=== PATIENT | female | born 1990 | race Caucasian/White ===

== ENCOUNTER 2018-01-14 19:18 | Emergency (ER) | payer MEDICAID ==
[~2018-01-14] VITALS: Ht 162.6 cm; Wt 118.2 kg
[2018-01-14 20:21] LABS: BASOPHILS # (AUTO) 0.07 x10^3/uL (0-0.1); BASOPHILS % (AUTO) 1 % (0-1); EOSINOPHILS # (AUTO) 0.08 x10^3/uL (0-0.4); EOSINOPHILS % (AUTO) 1 % (1-7); LYMPHOCYTES # (AUTO) 2.79 x10^3/uL (1-3.4); LYMPHOCYTES % (AUTO) 25 % (22-44); MD NO; MEAN CORPUSCULAR HEMOGLOBIN 27.9 pg (27.0-34.8); MEAN CORPUSCULAR HGB CONC 33.4 g/dL (32.4-35.8); MEAN CORPUSCULAR VOLUME 83.3 fL (80-100); MEAN PLATELET VOLUME 8.8 fL (7.4-10.4); MONOCYTES # (AUTO) 0.62 x10^3/uL (0.2-0.8); MONOCYTES % (AUTO) 6 % (2-9); NEUTROPHILS # (AUTO) 7.46 x10^3/uL (1.8-6.8); NEUTROPHILS % (AUTO) 68 % (42-75); PLATELET COUNT 289 x10^3/uL (130-400); RED BLOOD COUNT 4.71 x10^6/uL (3.82-5.3); RED CELL DISTRIBUTION WIDTH 13.5 % (9.6-15.2)
[2018-01-14 20:30] LABS: MICROSCOPIC INDICATED
[2018-01-14 20:32] LABS: ALANINE AMINOTRANSFERASE 25 U/L (12-78); ALBUMIN 3.2 g/dL (3.4-5.0); ANION GAP 8 mmol/L (5-15); CALCIUM 8.4 mg/dL (8.5-10.1); CHLORIDE 109 mmol/L (98-107); CREATININE 0.69 mg/dL (0.55-1.02)
[2018-01-14 20:33] LABS: CULTURE INDICATED? YES
[2018-01-14 20:36] LABS: ALKALINE PHOSPHATASE 75 U/L (45-117); BILIRUBIN,TOTAL 0.4 mg/dL (0.2-1.0); TOTAL PROTEIN 6.6 g/dL (6.4-8.2)
[2018-01-14 21:04] VITALS: BP 114/69
[2018-01-14] MEDS ORDERED: ONDANSETRON ODT 4 MG ONE (21:16)
[2018-01-14] MEDS ORDERED: ONDANSETRON ODT 8 MG PO ONE (21:30)
== END 2018-01-14 21:37 | disposition home or self-care (01) ==
LOC: ED 21:26
DX: R10.9 Unspecified abdominal pain (principal); J45.909 Unspecified asthma, uncomplicated; E66.9 Obesity, unspecified
CPT/HCPCS: 36415; 80053; 81001; 83690; 84703; 85025; 87086; 99284; Q0162

== ENCOUNTER 2018-02-02 07:57 | Emergency (ER) | payer MEDICAID ==
[~2018-02-02] VITALS: Ht 162.6 cm; Wt 130.5 kg
[2018-02-02 09:47] LABS: CULTURE INDICATED? YES; MICROSCOPIC INDICATED
[2018-02-02 09:48] LABS: HCG UR SG 1.028 (1.003-1.030)
[2018-02-02 10:06] LABS: BASOPHILS # (AUTO) 0.06 x10^3/uL (0-0.1); BASOPHILS % (AUTO) 1 % (0-1); EOSINOPHILS # (AUTO) 0.09 x10^3/uL (0-0.4); EOSINOPHILS % (AUTO) 1 % (1-7); LYMPHOCYTES % (AUTO) 27 % (22-44); MD NO; MEAN CORPUSCULAR HEMOGLOBIN 27.2 pg (27.0-34.8); MEAN CORPUSCULAR HGB CONC 32.7 g/dL (32.4-35.8); MEAN CORPUSCULAR VOLUME 83.2 fL (80-100); MEAN PLATELET VOLUME 9.1 fL (7.4-10.4); MONOCYTES # (AUTO) 0.45 x10^3/uL (0.2-0.8); MONOCYTES % (AUTO) 5 % (2-9); NEUTROPHILS # (AUTO) 5.49 x10^3/uL (1.8-6.8); NEUTROPHILS % (AUTO) 66 % (42-75); PLATELET COUNT 309 x10^3/uL (130-400); RED BLOOD COUNT 5.02 x10^6/uL (3.82-5.3)
[2018-02-02 10:22] LABS: ANION GAP 6 mmol/L (5-15); CALCIUM 8.6 mg/dL (8.5-10.1); CHLORIDE 109 mmol/L (98-107); CREATININE 0.58 mg/dL (0.55-1.02)
[2018-02-02] MEDS ORDERED: KETOROLAC 30 MG/1 ML IM ONE (10:30)
[2018-02-02] MEDS ORDERED: KETOROLAC 30 MG/1 ML ONE (10:35)
[2018-02-02 11:02] VITALS: BP 113/72
== END 2018-02-02 12:14 | disposition home or self-care (01) ==
LOC: ED 12:08
DX: N20.0 Calculus of kidney (principal); M79.3 Panniculitis, unspecified; B37.9 Candidiasis, unspecified; J45.909 Unspecified asthma, uncomplicated; F31.9 Bipolar disorder, unspecified; Z87.442 Personal history of urinary calculi
CPT/HCPCS: 36415; 74176; 80048; 81001; 81025; 85025; 87086; 96372; 99285; J1885

== ENCOUNTER 2018-04-21 10:43 | Emergency (ER) | payer MEDICAID ==
[~2018-04-21] VITALS: Ht 162.6 cm; Wt 132.6 kg
[2018-04-21 11:03] VITALS: BP 116/62
[2018-04-21] MEDS ORDERED: ONDANSETRON ODT 4 MG ONE (11:13)
[2018-04-21 11:25] LABS: BASOPHILS # (AUTO) 0.09 x10^3/uL (0-0.1); BASOPHILS % (AUTO) 1 % (0-1); EOSINOPHILS # (AUTO) 0.07 x10^3/uL (0-0.4); EOSINOPHILS % (AUTO) 1 % (1-7); LYMPHOCYTES # (AUTO) 2.46 x10^3/uL (1-3.4); LYMPHOCYTES % (AUTO) 31 % (22-44); MD NO; MEAN CORPUSCULAR HGB CONC 32.5 g/dL (32.4-35.8); MEAN CORPUSCULAR VOLUME 83.1 fL (80-100); MEAN PLATELET VOLUME 8.9 fL (7.4-10.4); MONOCYTES % (AUTO) 6 % (2-9); NEUTROPHILS # (AUTO) 4.84 x10^3/uL (1.8-6.8); NEUTROPHILS % (AUTO) 61 % (42-75); PLATELET COUNT 298 x10^3/uL (130-400); RED BLOOD COUNT 4.48 x10^6/uL (3.82-5.3); RED CELL DISTRIBUTION WIDTH 14.5 % (9.6-15.2)
[2018-04-21] MEDS ORDERED: ONDANSETRON ODT 4 MG PO ONE (11:30)
[2018-04-21 11:37] LABS: ALANINE AMINOTRANSFERASE 23 U/L (12-78); ALBUMIN 3.1 g/dL (3.4-5.0); ANION GAP 6 mmol/L (5-15); CALCIUM 8.2 mg/dL (8.5-10.1); CHLORIDE 109 mmol/L (98-107); CREATININE 0.58 mg/dL (0.55-1.02)
[2018-04-21 11:40] LABS: ALKALINE PHOSPHATASE 80 U/L (45-117); BILIRUBIN,TOTAL 0.2 mg/dL (0.2-1.0); TOTAL PROTEIN 6.7 g/dL (6.4-8.2)
== END 2018-04-21 12:17 | disposition home or self-care (01) ==
LOC: ED 11:20
DX: K52.9 Noninfective gastroenteritis and colitis, unspecified (principal); R11.2 Nausea with vomiting, unspecified; J45.909 Unspecified asthma, uncomplicated
CPT/HCPCS: 36415; 71046; 80053; 85025; 93005; 99285; Q0162

== ENCOUNTER 2018-05-22 08:56 | Emergency (ER) | payer MEDICAID ==
[~2018-05-22] VITALS: Ht 162.6 cm; Wt 129.5 kg
[2018-05-22 09:35] LABS: BASOPHILS # (AUTO) 0.05 x10^3/uL (0-0.1); BASOPHILS % (AUTO) 1 % (0-1); EOSINOPHILS % (AUTO) 1 % (1-7); LYMPHOCYTES # (AUTO) 1.95 x10^3/uL (1-3.4); LYMPHOCYTES % (AUTO) 23 % (22-44); MD NO; MEAN CORPUSCULAR HEMOGLOBIN 26.7 pg (27.0-34.8); MEAN CORPUSCULAR HGB CONC 32.6 g/dL (32.4-35.8); MEAN PLATELET VOLUME 9.4 fL (7.4-10.4); MONOCYTES # (AUTO) 0.56 x10^3/uL (0.2-0.8); MONOCYTES % (AUTO) 7 % (2-9); NEUTROPHILS # (AUTO) 5.74 x10^3/uL (1.8-6.8); NEUTROPHILS % (AUTO) 68 % (42-75); PLATELET COUNT 304 x10^3/uL (130-400); RED BLOOD COUNT 5.01 x10^6/uL (3.82-5.3); RED CELL DISTRIBUTION WIDTH 14.3 % (9.6-15.2)
[2018-05-22 09:36] LABS: CULTURE INDICATED? YES; MICROSCOPIC INDICATED
[2018-05-22 09:45] LABS: ALBUMIN 3.3 g/dL (3.4-5.0); ANION GAP 5 mmol/L (5-15); CALCIUM 8.3 mg/dL (8.5-10.1); CHLORIDE 110 mmol/L (98-107)
[2018-05-22 09:51] LABS: ALANINE AMINOTRANSFERASE 39 U/L (12-78); ALKALINE PHOSPHATASE 73 U/L (45-117); BILIRUBIN,TOTAL 0.6 mg/dL (0.2-1.0); CREATININE 0.71 mg/dL (0.55-1.02); TOTAL PROTEIN 6.7 g/dL (6.4-8.2)
[2018-05-22] MEDS ORDERED: AZITHROMYCIN 250 MG TABLET PO STA (10:28)
[2018-05-22] MEDS ORDERED: CEFTRIAXONE 250 MG IM ONE (10:30)
[2018-05-22] MEDS ORDERED: AZITHROMYCIN 500 MG TABLET ONE (10:36)
[2018-05-22] MEDS ORDERED: CEFTRIAXONE 250 MG ONE (10:36)
[2018-05-22 10:46] LABS: CLUE CELLS NONE SEEN (NONE SEEN); WET PREP WBCS FEW (FEW)
[2018-05-22 11:06] VITALS: BP 128/75
[2018-05-24] MEDS ORDERED: TRAZ50TA66 PO (09:51)
== END 2018-05-22 11:09 | disposition home or self-care (01) ==
LOC: ED 10:37
DX: N76.0 Acute vaginitis (principal); N89.8 Other specified noninflammatory disorders of vagina; R10.9 Unspecified abdominal pain; J45.909 Unspecified asthma, uncomplicated; E66.9 Obesity, unspecified; Z88.0 Allergy status to penicillin
CPT/HCPCS: 36415; 76700; 80053; 81001; 83690; 84703; 85025; 87086; 87147; 87210; 87491; 87591; 87808; 96372; 99284; J0696

== ENCOUNTER 2018-05-24 09:28 | Emergency (ER) | payer MEDICAID ==
[~2018-05-24] VITALS: Ht 162.6 cm; Wt 109.0 kg
[2018-05-24] MEDS ORDERED: TRAZ-136 PO (09:51)
[2018-05-24] MEDS ORDERED: SODIUM CHLORIDE 0.9% 1,000ML IVBOLUS ONE (10:00)
[2018-05-24] MEDS ORDERED: ONDANSETRON 2MG/ML, 2ML IVPush ONE (10:00)
[2018-05-24] MEDS ORDERED: ACETAMINOPHEN 325 MG TABLET PO ONE (10:30)
[2018-05-24 10:43] LABS: ALBUMIN 3.6 g/dL (3.4-5.0); ANION GAP 7 mmol/L (5-15); CHLORIDE 108 mmol/L (98-107)
[2018-05-24 10:48] LABS: RAPID INFLUENZA A Negative (Negative); RAPID INFLUENZA B Negative (Negative)
[2018-05-24 10:51] LABS: BASOPHILS # (AUTO) 0.02 x10^3/uL (0-0.1); BASOPHILS % (AUTO) 0 % (0-1); CREATININE 0.79 mg/dL (0.55-1.02); EOSINOPHILS # (AUTO) 0.01 x10^3/uL (0-0.4); EOSINOPHILS % (AUTO) 0 % (1-7); HEMOGRAM NOTE RECHECKED; LYMPHOCYTES # (AUTO) 0.97 x10^3/uL (1-3.4); LYMPHOCYTES % (AUTO) 16 % (22-44); MD NO; MEAN CORPUSCULAR HEMOGLOBIN 26.6 pg (27.0-34.8); MEAN CORPUSCULAR HGB CONC 32.5 g/dL (32.4-35.8); MEAN CORPUSCULAR VOLUME 81.6 fL (80-100); MEAN PLATELET VOLUME 9.4 fL (7.4-10.4); MONOCYTES # (AUTO) 0.75 x10^3/uL (0.2-0.8); MONOCYTES % (AUTO) 12 % (2-9); NEUTROPHILS # (AUTO) 4.53 x10^3/uL (1.8-6.8); NEUTROPHILS % (AUTO) 72 % (42-75); PLATELET COUNT 224 x10^3/uL (130-400); RED BLOOD COUNT 5.27 x10^6/uL (3.82-5.3); RED CELL DISTRIBUTION WIDTH 13.8 % (9.6-15.2)
[2018-05-24] MEDS ORDERED: ACETAMINOPHEN 325 MG TABLET ONE (10:55)
[2018-05-24] MEDS ORDERED: ONDANSETRON 2MG/ML, 2ML ONE (10:55)
[2018-05-24 10:56] LABS: CULTURE INDICATED? YES; MICROSCOPIC INDICATED
[2018-05-24 11:38] VITALS: BP 103/63
== END 2018-05-24 11:38 | disposition home or self-care (01) ==
LOC: ED 11:30
DX: J00 Acute nasopharyngitis [common cold] (principal); R11.10 Vomiting, unspecified; N30.00 Acute cystitis without hematuria; J45.909 Unspecified asthma, uncomplicated; F31.9 Bipolar disorder, unspecified; E66.01 Morbid (severe) obesity due to excess calories; Z68.25 Body mass index [BMI] 25.0-25.9, adult
CPT/HCPCS: 36415; 71046; 80048; 81001; 82040; 84703; 85025; 87086; 87400; 96361; 96374; 99284; J2405; J7030

== ENCOUNTER 2018-06-06 23:30 | Emergency (ER) | payer MEDICAID ==
[~2018-06-06] VITALS: Ht 162.6 cm; Wt 131.0 kg
[~2018-06-06 23:30] MED LIST: TRAZ50TA66 PO
[2018-06-07 00:12] LABS: BASOPHILS # (AUTO) 0.04 x10^3/uL (0-0.1); BASOPHILS % (AUTO) 1 % (0-1); EOSINOPHILS # (AUTO) 0.07 x10^3/uL (0-0.4); EOSINOPHILS % (AUTO) 1 % (1-7); LYMPHOCYTES # (AUTO) 3.56 x10^3/uL (1-3.4); LYMPHOCYTES % (AUTO) 42 % (22-44); MD NO; MEAN CORPUSCULAR HEMOGLOBIN 26.8 pg (27.0-34.8); MEAN CORPUSCULAR HGB CONC 32.8 g/dL (32.4-35.8); MEAN CORPUSCULAR VOLUME 81.7 fL (80-100); MEAN PLATELET VOLUME 9.2 fL (7.4-10.4); MONOCYTES % (AUTO) 7 % (2-9); NEUTROPHILS # (AUTO) 4.12 x10^3/uL (1.8-6.8); NEUTROPHILS % (AUTO) 49 % (42-75); PLATELET COUNT 332 x10^3/uL (130-400); RED BLOOD COUNT 4.95 x10^6/uL (3.82-5.3); RED CELL DISTRIBUTION WIDTH 14.1 % (9.6-15.2)
[2018-06-07 00:25] LABS: ALANINE AMINOTRANSFERASE 25 U/L (12-78); ALBUMIN 3.2 g/dL (3.4-5.0); ANION GAP 10 mmol/L (5-15); CALCIUM 8.4 mg/dL (8.5-10.1); CHLORIDE 111 mmol/L (98-107); CREATININE 0.67 mg/dL (0.55-1.02)
[2018-06-07 00:30] LABS: ALKALINE PHOSPHATASE 75 U/L (45-117); BILIRUBIN,TOTAL 0.2 mg/dL (0.2-1.0); TOTAL PROTEIN 6.6 g/dL (6.4-8.2); TROPONIN I < 0.015 ng/mL (0.000-0.045)
[2018-06-07 00:33] LABS: HCG UR SG 1.031 (1.003-1.030)
[2018-06-07 00:34] LABS: MICROSCOPIC INDICATED
[2018-06-07 00:52] LABS: CULTURE INDICATED? NO
[2018-06-07 01:27] VITALS: BP 109/48
== END 2018-06-07 01:29 | disposition home or self-care (01) ==
LOC: ED 23:59
DX: R10.11 Right upper quadrant pain (principal); R11.2 Nausea with vomiting, unspecified; R19.7 Diarrhea, unspecified; R07.9 Chest pain, unspecified; R10.13 Epigastric pain; R10.12 Left upper quadrant pain
CPT/HCPCS: 36415; 71045; 76700; 80053; 81001; 81025; 83690; 84484; 85025; 93005; 99284

== ENCOUNTER 2018-07-03 10:29 | Emergency (ER) | payer MEDICAID ==
[~2018-07-03] VITALS: Ht 162.6 cm; Wt 130.0 kg
[2018-07-03 10:36] VITALS: BP 135/77
== END 2018-07-03 11:21 | disposition home or self-care (01) ==
LOC: ED 11:10
DX: F31.9 Bipolar disorder, unspecified (principal); Z76.0 Encounter for issue of repeat prescription; J45.909 Unspecified asthma, uncomplicated; Z88.0 Allergy status to penicillin
CPT/HCPCS: 99283

== ENCOUNTER 2018-07-30 10:01 | Emergency (ER) | payer MEDICAID ==
[~2018-07-30] VITALS: Ht 162.6 cm; Wt 132.3 kg
[2018-07-30 11:38] LABS: HCG UR SG 1.018 (1.003-1.030)
[2018-07-30 11:40] LABS: CULTURE INDICATED? YES; MICROSCOPIC INDICATED
[2018-07-30 12:21] VITALS: BP 121/80
== END 2018-07-30 12:27 | disposition home or self-care (01) ==
LOC: ED 10:14
DX: R30.0 Dysuria (principal); Z87.442 Personal history of urinary calculi; Z87.440 Personal history of urinary (tract) infections
CPT/HCPCS: 81001; 81025; 87086; 99283

== ENCOUNTER 2018-08-20 12:54 | Emergency (ER) | payer MEDICAID ==
[~2018-08-20] VITALS: Ht 162.6 cm; Wt 131.2 kg
[2018-08-20 13:00] VITALS: BP 112/74
[2018-08-20] MEDS ORDERED: ONDANSETRON ODT 4 MG ONE (13:30)
[2018-08-20] MEDS ORDERED: ONDANSETRON ODT 4 MG PO ONE (13:30)
[2018-08-20] MEDS ORDERED: ACETAMINOPHEN 500 MG TABLET PO ONE (13:30)
[2018-08-20] MEDS ORDERED: ACETAMINOPHEN 500 MG TABLET ONE (13:30)
--- NOTE | 2018-08-20 13:34 | NUR ---
PT HERE FOR UTI SYMPTOMS. PT REPORTS FREQUENT URINATION WITH BURING SENSATION. PT PROVIDED UA SAMPLE AND MEDICATED FOR DISCOMFORT. AWAITING FURHTER ORDERS.
[2018-08-20 13:51] LABS: BASOPHILS # (AUTO) 0.06 x10^3/uL (0-0.1); BASOPHILS % (AUTO) 1 % (0-1); EOSINOPHILS # (AUTO) 0.11 x10^3/uL (0-0.4); EOSINOPHILS % (AUTO) 1 % (1-7); LYMPHOCYTES # (AUTO) 2.61 x10^3/uL (1-3.4); LYMPHOCYTES % (AUTO) 29 % (22-44); MD NO; MEAN CORPUSCULAR HGB CONC 32.1 g/dL (32.4-35.8); MEAN PLATELET VOLUME 9.6 fL (7.4-10.4); MONOCYTES # (AUTO) 0.58 x10^3/uL (0.2-0.8); MONOCYTES % (AUTO) 6 % (2-9); NEUTROPHILS # (AUTO) 5.71 x10^3/uL (1.8-6.8); NEUTROPHILS % (AUTO) 63 % (42-75); PLATELET COUNT 308 x10^3/uL (130-400); RED BLOOD COUNT 5.17 x10^6/uL (3.82-5.3); RED CELL DISTRIBUTION WIDTH 15.2 % (9.6-15.2)
[2018-08-20 13:53] LABS: HCG UR SG 1.031 (1.003-1.030)
[2018-08-20 13:54] LABS: MICROSCOPIC INDICATED
[2018-08-20 13:57] LABS: ALANINE AMINOTRANSFERASE 21 U/L (12-78); ALBUMIN 3.2 g/dL (3.4-5.0); ANION GAP 6 mmol/L (5-15); CALCIUM 8.2 mg/dL (8.5-10.1); CHLORIDE 108 mmol/L (98-107); CREATININE 0.65 mg/dL (0.55-1.02)
[2018-08-20 14:00] LABS: ALKALINE PHOSPHATASE 92 U/L (45-117); BILIRUBIN,TOTAL 0.3 mg/dL (0.2-1.0); TOTAL PROTEIN 6.6 g/dL (6.4-8.2)
[2018-08-20 14:09] LABS: RAPID INFLUENZA A Negative (Negative); RAPID INFLUENZA B Negative (Negative)
[2018-08-20 14:20] LABS: CULTURE INDICATED? YES
--- NOTE | 2018-08-20 14:51 | NUR ---
Patient given discharge instructions and Rx, they have confirmed that they understand the instructions. Patient ambulatory with steady gait.
== END 2018-08-20 14:57 | disposition home or self-care (01) ==
LOC: ED 13:55
DX: N30.00 Acute cystitis without hematuria (principal); J06.9 Acute upper respiratory infection, unspecified; F31.9 Bipolar disorder, unspecified; J45.909 Unspecified asthma, uncomplicated; E66.9 Obesity, unspecified; Z68.42 Body mass index [BMI] 45.0-49.9, adult
CPT/HCPCS: 36415; 71045; 80053; 81001; 81025; 83690; 85025; 87086; 87400; 99284; Q0162

== ENCOUNTER 2018-09-02 15:38 | Emergency (ER) | payer MEDICAID ==
[~2018-09-02] VITALS: Ht 162.6 cm; Wt 135.1 kg
[2018-09-02 16:26] LABS: BASOPHILS # (AUTO) 0.02 x10^3/uL (0-0.1); BASOPHILS % (AUTO) 0 % (0-1); EOSINOPHILS # (AUTO) 0.09 x10^3/uL (0-0.4); EOSINOPHILS % (AUTO) 1 % (1-7); LYMPHOCYTES # (AUTO) 2.36 x10^3/uL (1-3.4); LYMPHOCYTES % (AUTO) 23 % (22-44); MD NO; MEAN CORPUSCULAR VOLUME 81.9 fL (80-100); MEAN PLATELET VOLUME 8.9 fL (7.4-10.4); MONOCYTES % (AUTO) 5 % (2-9); NEUTROPHILS # (AUTO) 7.49 x10^3/uL (1.8-6.8); NEUTROPHILS % (AUTO) 72 % (42-75); PLATELET COUNT 309 x10^3/uL (130-400); RED CELL DISTRIBUTION WIDTH 15.4 % (9.6-15.2)
[2018-09-02 16:33] LABS: CULTURE INDICATED? YES; MICROSCOPIC INDICATED
[2018-09-02 16:36] LABS: ALANINE AMINOTRANSFERASE 22 U/L (12-78); ALBUMIN 3.5 g/dL (3.4-5.0); ANION GAP 4 mmol/L (5-15); CALCIUM 8.5 mg/dL (8.5-10.1); CHLORIDE 111 mmol/L (98-107); CREATININE 0.73 mg/dL (0.55-1.02)
[2018-09-02 16:40] LABS: ALKALINE PHOSPHATASE 86 U/L (45-117); BILIRUBIN,TOTAL 0.3 mg/dL (0.2-1.0); TOTAL PROTEIN 6.9 g/dL (6.4-8.2)
--- NOTE | 2018-09-02 19:12 | NUR ---
REPORT OF PT FROM LISA OH AND ASSUMING CARE OF PT AT THIS TIME.
--- NOTE | 2018-09-02 19:21 | NUR ---
CARE ASSUMED FOR DC. PT DC'D HOME WITH RX X 1 AND UNDERSTANDING OF INSTRUCTIONS. PT AND FAMILY MEMBER ESCORTED TO DC DESK.
[2018-09-02 19:22] VITALS: BP 128/72
== END 2018-09-02 19:24 | disposition home or self-care (01) ==
LOC: ED 18:02
DX: N30.00 Acute cystitis without hematuria (principal)
CPT/HCPCS: 36415; 74176; 80053; 81001; 84703; 85025; 87086; 99284

== ENCOUNTER 2018-09-10 07:25 | Emergency (ER) | payer MEDICAID ==
[~2018-09-10] VITALS: Ht 162.6 cm; Wt 132.3 kg
[2018-09-10 07:28] VITALS: BP 121/77
[2018-09-10] MEDS ORDERED: QUET200T4 PO (07:42)
[2018-09-10] MEDS ORDERED: KETOROLAC 30 MG/1 ML IM ONE (08:00)
[2018-09-10] MEDS ORDERED: ONDANSETRON ODT 4 MG PO ONE (08:00)
[2018-09-10 08:06] LABS: BASOPHILS # (AUTO) 0.03 x10^3/uL (0-0.1); BASOPHILS % (AUTO) 0 % (0-1); EOSINOPHILS # (AUTO) 0.13 x10^3/uL (0-0.4); EOSINOPHILS % (AUTO) 2 % (1-7); LYMPHOCYTES # (AUTO) 1.99 x10^3/uL (1-3.4); LYMPHOCYTES % (AUTO) 27 % (22-44); MD NO; MEAN CORPUSCULAR HEMOGLOBIN 26.2 pg (27.0-34.8); MEAN CORPUSCULAR HGB CONC 32.4 g/dL (32.4-35.8); MEAN CORPUSCULAR VOLUME 80.9 fL (80-100); MEAN PLATELET VOLUME 8.9 fL (7.4-10.4); MONOCYTES # (AUTO) 0.69 x10^3/uL (0.2-0.8); MONOCYTES % (AUTO) 9 % (2-9); NEUTROPHILS # (AUTO) 4.59 x10^3/uL (1.8-6.8); NEUTROPHILS % (AUTO) 62 % (42-75); PLATELET COUNT 290 x10^3/uL (130-400); RED BLOOD COUNT 5.22 x10^6/uL (3.82-5.3); RED CELL DISTRIBUTION WIDTH 15.1 % (9.6-15.2)
[2018-09-10] MEDS ORDERED: ONDANSETRON ODT 4 MG ONE (08:08)
[2018-09-10] MEDS ORDERED: KETOROLAC 30 MG/1 ML ONE (08:08)
[2018-09-10 08:16] LABS: ALBUMIN 3.3 g/dL (3.4-5.0); ANION GAP 5 mmol/L (5-15); CALCIUM 8.3 mg/dL (8.5-10.1); CHLORIDE 110 mmol/L (98-107); CREATININE 0.72 mg/dL (0.55-1.02)
[2018-09-10 08:24] LABS: CULTURE INDICATED? YES; MICROSCOPIC INDICATED
== END 2018-09-10 09:37 | disposition home or self-care (01) ==
LOC: ED 08:50
DX: J45.909 Unspecified asthma, uncomplicated (principal); R30.0 Dysuria; F31.9 Bipolar disorder, unspecified
CPT/HCPCS: 36415; 74176; 80048; 81001; 82040; 85025; 87086; 96372; 99284; J1885; Q0162

== ENCOUNTER 2018-09-16 18:29 | Emergency (ER) | payer MEDICAID ==
[~2018-09-16] VITALS: Ht 162.6 cm; Wt 133.4 kg
[~2018-09-16 18:29] MED LIST changes: +QUET200T4 PO
[2018-09-16 18:36] VITALS: BP 138/93
[2018-09-16] MEDS ORDERED: ONDANSETRON ODT 4 MG ONE (18:54)
[2018-09-16] MEDS ORDERED: ONDANSETRON ODT 4 MG PO ONE (19:00)
[2018-09-16 19:01] LABS: MEAN CORPUSCULAR HEMOGLOBIN 26.8 pg (27.0-34.8); MEAN CORPUSCULAR HGB CONC 33.2 g/dL (32.4-35.8); MEAN CORPUSCULAR VOLUME 80.8 fL (80-100); MEAN PLATELET VOLUME 8.9 fL (7.4-10.4); PLATELET COUNT 282 x10^3/uL (130-400); RED CELL DISTRIBUTION WIDTH 14.7 % (9.6-15.2)
[2018-09-16 19:11] LABS: ALANINE AMINOTRANSFERASE 26 U/L (12-78); ALBUMIN 3.6 g/dL (3.4-5.0); ANION GAP 5 mmol/L (5-15); CALCIUM 8.4 mg/dL (8.5-10.1); CHLORIDE 108 mmol/L (98-107); CREATININE 0.62 mg/dL (0.55-1.02)
[2018-09-16 19:15] LABS: ALKALINE PHOSPHATASE 84 U/L (45-117); BILIRUBIN,TOTAL 0.7 mg/dL (0.2-1.0); TOTAL PROTEIN 7.1 g/dL (6.4-8.2)
[2018-09-16 19:36] LABS: BASOPHILS # (AUTO) 0.01 x10^3/uL (0-0.1); BASOPHILS % (AUTO) 0 % (0-1); EOSINOPHILS # (AUTO) 0.08 x10^3/uL (0-0.4); EOSINOPHILS % (AUTO) 1 % (1-7); LYMPHOCYTES # (AUTO) 1.05 x10^3/uL (1-3.4); LYMPHOCYTES % (AUTO) 9 % (22-44); MD NO; MONOCYTES # (AUTO) 0.59 x10^3/uL (0.2-0.8); MONOCYTES % (AUTO) 5 % (2-9); NEUTROPHILS # (AUTO) 9.83 x10^3/uL (1.8-6.8); NEUTROPHILS % (AUTO) 85 % (42-75)
--- NOTE | 2018-09-16 21:25 | NUR ---
[id number]
--- NOTE | 2018-09-16 22:39 | NUR ---
NILX2
--- NOTE | 2018-09-16 22:47 | NUR ---
NILX3
== END 2018-09-16 22:58 | disposition left against medical advice (07) ==
LOC: ED 22:52
DX: R10.31 Right lower quadrant pain (principal)
CPT/HCPCS: 36415; 80053; 83690; 84703; 85025; 99283; Q0162

== ENCOUNTER 2019-01-28 12:01 | Emergency (ER) | payer MEDICAID ==
[~2019-01-28] VITALS: Ht 162.6 cm; Wt 133.4 kg
[2019-01-28 12:08] VITALS: BP 112/77
--- NOTE | 2019-01-28 12:26 | NUR ---
TASK RN, ASSISTING PRIMARY. URINE COLLECTED/ORDERED/SENT TO LAB. PT WITH DYSURIA FOR A COUPLE DAYS-"BURNING WITH URINATION", MILD FLANK PAIN AND NAUSEA. PT STATES RASH TO INNER THIGH FOR ONE WEEK. RASH IS MILD ERYTHEMA/SKIN IRRITATION TO BILATERAL INNER THIGH. CALL LIGHT WITHIN REACH, ERP IN TO SEE PT.
[2019-01-28] MEDS ORDERED: PHENAZOPYRIDINE 200 MG TABLET PO ONE (12:30)
[2019-01-28] MEDS ORDERED: PHENAZOPYRIDINE 200 MG TABLET ONE (12:34)
[2019-01-28 12:35] LABS: MICROSCOPIC AUTO
[2019-01-28 12:36] LABS: CULTURE INDICATED? YES
--- NOTE | 2019-01-28 12:37 | NUR ---
PYRIDIUM GIVEN PER ERP ORDER. WARM BLANKET PROVIDED.
--- NOTE | 2019-01-28 12:41 | NUR ---
UA RESULT BACK, PT FOR RECHECK.
--- NOTE | 2019-01-28 12:54 | NUR ---
PT AMBULATED TO BR WITH SBA. MONITOR REATTACHED. LIGHTS DIMMMED, PT ASSISTED FOR REPOSITIONING ON GURNEY, CALL LIGHT WITHIN REACH.
[2019-02-01] MEDS ORDERED: HYDR453. TP (21:07)
== END 2019-01-28 13:04 | disposition home or self-care (01) ==
LOC: ED 12:50
DX: N30.01 Acute cystitis with hematuria (principal); L24.9 Irritant contact dermatitis, unspecified cause; J45.909 Unspecified asthma, uncomplicated; F31.9 Bipolar disorder, unspecified
CPT/HCPCS: 81001; 87086; 87147; 99283

== ENCOUNTER 2019-02-01 20:43 | Emergency (ER) | payer MEDICAID ==
[~2019-02-01] VITALS: Ht 162.6 cm; Wt 132.0 kg
[2019-02-01 20:51] VITALS: BP 113/77
== END 2019-02-01 23:34 | disposition home or self-care (01) ==
LOC: ED 22:36
DX: R31.29 Other microscopic hematuria (principal); J45.909 Unspecified asthma, uncomplicated; F31.9 Bipolar disorder, unspecified
CPT/HCPCS: 36415; 74018; 76770; 80048; 81001; 81025; 82040; 85025; 87086; 96372; 99284; J1885; 96374

== ENCOUNTER 2019-05-03 14:13 | Emergency (ER) | payer MEDICAID ==
[~2019-05-03] VITALS: Ht 162.6 cm; Wt 130.5 kg
[~2019-05-03 14:13] MED LIST changes: +HYDR453. TP
[2019-05-03 14:45] LABS: MICROSCOPIC NOT IND
--- NOTE | 2019-05-03 14:55 | NUR ---
sales professional bilingual: pt ambulatory to ED room 34 from lobby at this time.
[2019-05-03 15:58] LABS: BASOPHILS # (AUTO) 0.03 x10^3/uL (0-0.1); BASOPHILS % (AUTO) 0 % (0-1); EOSINOPHILS # (AUTO) 0.14 x10^3/uL (0-0.4); EOSINOPHILS % (AUTO) 2 % (1-7); LYMPHOCYTES # (AUTO) 2.88 x10^3/uL (1-3.4); LYMPHOCYTES % (AUTO) 29 % (22-44); MD NO; MEAN CORPUSCULAR HEMOGLOBIN 27.4 pg (27.0-34.8); MEAN CORPUSCULAR HGB CONC 32.1 g/dL (32.4-35.8); MEAN CORPUSCULAR VOLUME 85.2 fL (80-100); MEAN PLATELET VOLUME 9.4 fL (7.4-10.4); MONOCYTES # (AUTO) 0.63 x10^3/uL (0.2-0.8); MONOCYTES % (AUTO) 6 % (2-9); NEUTROPHILS # (AUTO) 6.25 x10^3/uL (1.8-6.8); NEUTROPHILS % (AUTO) 63 % (42-75); PLATELET COUNT 301 x10^3/uL (130-400); RED BLOOD COUNT 4.99 x10^6/uL (3.82-5.3); RED CELL DISTRIBUTION WIDTH 13.8 % (9.6-15.2)
[2019-05-03 16:10] LABS: ALANINE AMINOTRANSFERASE 23 U/L (12-78); ALBUMIN 3.3 g/dL (3.4-5.0); ANION GAP 3 mmol/L (5-15); CALCIUM 8.7 mg/dL (8.5-10.1); CHLORIDE 107 mmol/L (98-107); CREATININE 0.82 mg/dL (0.55-1.02)
[2019-05-03 16:13] LABS: ALKALINE PHOSPHATASE 76 U/L (45-117); BILIRUBIN,TOTAL 0.5 mg/dL (0.2-1.0); TOTAL PROTEIN 6.9 g/dL (6.4-8.2)
[2019-05-03 16:24] LABS: HCG UR SG 1.025 (1.003-1.030)
--- NOTE | 2019-05-03 17:10 | NUR ---
BREAK RN: PT UPRIGHT ON GURNEY AWAKE & COMFORTABLE, TALKING ON CELL PHONE, RESPONDS APPROP TO STAFF, NAD, NO NEEDS AT THIS TIME, SO AT BS, CALL LIGHT WITHIN REACH.
[2019-05-03 18:01] VITALS: BP 110/51
== END 2019-05-03 18:05 | disposition home or self-care (01) ==
LOC: ED 17:43
DX: R10.9 Unspecified abdominal pain (principal); R30.0 Dysuria; F31.9 Bipolar disorder, unspecified; J45.909 Unspecified asthma, uncomplicated
CPT/HCPCS: 36415; 76770; 80053; 81003; 81025; 83690; 85025; 99284

== ENCOUNTER 2020-02-14 10:01 | Emergency (ER) | payer MEDICAID ==
[~2020-02-14] VITALS: Ht 162.6 cm; Wt 134.5 kg
[2020-02-14] MEDS ORDERED: ONDANSETRON 2MG/ML, 2ML ONE (10:35)
[2020-02-14] MEDS ORDERED: MORPHINE SULFATE 4 MG/ML, 1ML ONE (10:36)
--- NOTE | 2020-02-14 10:48 | NUR ---
PT CAME IN CO OF NVD, RUQ PAIN THAT RADIATES ACROSS ABD. PT STATES THIS HAS BEEN GOING ON FOR 3 DAYS AND GETS WORSE AFTER SHE EATS. UA SENT. LABS DRAWN. MEDICATED PER AUG. WARM BLANKET PROVIDED
[2020-02-14 10:57] LABS: BASOPHILS # (AUTO) 0.02 x10^3/uL (0-0.1); BASOPHILS % (AUTO) 0 % (0-1); EOSINOPHILS # (AUTO) 0.11 x10^3/uL (0-0.4); EOSINOPHILS % (AUTO) 1 % (1-7); LYMPHOCYTES # (AUTO) 1.21 x10^3/uL (1-3.4); LYMPHOCYTES % (AUTO) 13 % (22-44); MD NO; MEAN CORPUSCULAR HEMOGLOBIN 27.6 pg (27.0-34.8); MEAN CORPUSCULAR HGB CONC 32.8 g/dL (32.4-35.8); MEAN PLATELET VOLUME 9.1 fL (7.4-10.4); MONOCYTES # (AUTO) 0.51 x10^3/uL (0.2-0.8); MONOCYTES % (AUTO) 6 % (2-9); NEUTROPHILS # (AUTO) 7.29 x10^3/uL (1.8-6.8); NEUTROPHILS % (AUTO) 80 % (42-75); PLATELET COUNT 278 x10^3/uL (130-400); RED BLOOD COUNT 5.26 x10^6/uL (3.82-5.3); RED CELL DISTRIBUTION WIDTH 13.9 % (9.6-15.2)
[2020-02-14] MEDS ORDERED: SODIUM CHLORIDE FLUSH 10ML SYR IVF ONE (11:00)
[2020-02-14] MEDS ORDERED: ONDANSETRON 2MG/ML, 2ML IVPush ONE (11:00)
[2020-02-14] MEDS ORDERED: SODIUM CHLORIDE 0.9% 1,000ML IVBOLUS ONE (11:00)
[2020-02-14] MEDS ORDERED: MORPHINE SULFATE 4 MG/ML, 1ML IVPush PRN (11:00)
[2020-02-14 11:08] LABS: ALBUMIN 3.5 g/dL (3.4-5.0); ANION GAP 6 mmol/L (5-15); CALCIUM 8.6 mg/dL (8.5-10.1); CHLORIDE 111 mmol/L (98-107)
[2020-02-14 11:14] LABS: ALANINE AMINOTRANSFERASE 36 U/L (12-78); ALKALINE PHOSPHATASE 80 U/L (45-117); CREATININE 0.64 mg/dL (0.55-1.02); TOTAL PROTEIN 7.1 g/dL (6.4-8.2)
[2020-02-14 11:23] LABS: MICROSCOPIC INDICATED
[2020-02-14 11:34] VITALS: BP 121/76
--- NOTE | 2020-02-14 11:34 | NUR ---
PT RESTING IN [facility]. VSS. REPORTS PAIN IMPROVEMENT
== END 2020-02-14 12:32 | disposition home or self-care (01) ==
LOC: ED 12:26
DX: R10.13 Epigastric pain (principal); R11.2 Nausea with vomiting, unspecified; R19.7 Diarrhea, unspecified
CPT/HCPCS: 36415; 76700; 80053; 81001; 83690; 84703; 85025; 87086; 96361; 96374; 96375; 99284; J2270; J2405; J7030

== ENCOUNTER 2020-11-05 19:04 | Emergency (ER) | payer MEDICAID ==
[~2020-11-05] VITALS: Ht 162.6 cm; Wt 131.8 kg
--- NOTE | 2020-11-05 19:05 | NUR ---
PT BIB [facility] FROM HOME FOR C/O R FLANK PAIN X 4 DAYS. +NAUSEA TODAY. PT REPORTS HX OF KIDNEY STONE. VSS PER EMS. ARRIVES TO ED A&OX4, IN MODERATE DISTRESS D/T PAIN.
[2020-11-05 19:22] VITALS: BP 120/73
--- NOTE | 2020-11-05 19:25 | NUR ---
ERP WAS IN TO SEE PT.
[2020-11-05] MEDS ORDERED: KETOROLAC 30 MG/1 ML IM ONE (19:30)
--- NOTE | 2020-11-05 19:30 | NUR ---
PT AMBULATED TO BR WITHOUT DIFFICULTY. INSTRUCTED ON CLEAN CATCH URINE SAMPLE.
[2020-11-05 19:47] LABS: BASOPHILS % (AUTO) 1 % (0-1); EOSINOPHILS % (AUTO) 3 % (1-7); LYMPHOCYTES % (AUTO) 32 % (22-44); MEAN CORPUSCULAR HEMOGLOBIN 27.5 pg (27.0-34.8); MEAN CORPUSCULAR HGB CONC 33.1 g/dL (32.4-35.8); MEAN PLATELET VOLUME 8.3 fL (7.4-10.4); MONOCYTES % (AUTO) 7 % (2-9); NEUTROPHILS % (AUTO) 58 % (42-75); PLATELET COUNT 334 x10^3/uL (130-400); RED BLOOD COUNT 5.21 x10^6/uL (3.82-5.3); RED CELL DISTRIBUTION WIDTH 13.9 % (9.6-15.2)
[2020-11-05 19:48] LABS: MD NO
[2020-11-05] MEDS ORDERED: KETOROLAC 30 MG/1 ML ONE (19:49)
--- NOTE | 2020-11-05 19:55 | NUR ---
PT MEDICATED PER ORDERS. UNDERSTANDS POC.
[2020-11-05 20:01] LABS: ALBUMIN 3.3 g/dL (3.4-5.0); ANION GAP 3 mmol/L (5-15); CALCIUM 8.9 mg/dL (8.5-10.1); CHLORIDE 111 mmol/L (98-107); CREATININE 0.68 mg/dL (0.55-1.02)
[2020-11-05 20:05] LABS: MICROSCOPIC INDICATED
[2020-11-05] MEDS ORDERED: PHENAZOPYRIDINE 200 MG TABLET PO ONE (21:00)
[2020-11-05] MEDS ORDERED: FOSFOMYCIN 3 GM PACKET PO ONE (21:00)
--- NOTE | 2020-11-05 21:12 | NUR ---
REPORTED TO TOMASA GONZALEZ.
[2020-11-05] MEDS ORDERED: PHENAZOPYRIDINE 200 MG TABLET ONE (21:24)
--- NOTE | 2020-11-05 21:30 | NUR ---
First contact with pt for d/c. Pt given meds prior to dc, rx and instruct. VSS.
== END 2020-11-05 21:34 | disposition home or self-care (01) ==
LOC: ED 20:46
DX: N30.00 Acute cystitis without hematuria (principal); R00.0 Tachycardia, unspecified; J45.909 Unspecified asthma, uncomplicated; Z88.0 Allergy status to penicillin
CPT/HCPCS: 36415; 80048; 81001; 82040; 84703; 85025; 87086; 96372; 99283; J1885

== ENCOUNTER 2021-01-17 07:50 | Emergency (ER) | payer MEDICAID ==
[~2021-01-17] VITALS: Ht 162.6 cm; Wt 138.0 kg
[2021-01-17 07:51] VITALS: BP 124/64
--- NOTE | 2021-01-17 09:03 | NUR ---
ERMD AT BEDSIDE FOR EVALUATION.
--- NOTE | 2021-01-17 10:06 | NUR ---
PATIENT SITTING IN RNEY ON PHONE, NADN, CALL LIGHT WITHIN REACH. WAITING FOR URINE RESULTS.
[2021-01-17 10:19] LABS: MICROSCOPIC INDICATED
--- NOTE | 2021-01-17 11:32 | NUR ---
Patient given discharge instructions and PRESCRIPTION AND they have confirmed that they understand the instructions. Patient ambulatory with steady gait. NAD, all questions answered appropriately, denies additional needs at this time. No personal belongings left in room after discharge.
== END 2021-01-17 11:33 | disposition home or self-care (01) ==
LOC: ED 08:35
DX: N30.00 Acute cystitis without hematuria (principal)
CPT/HCPCS: 81001; 81025; 87086; 87147; 99283

== ENCOUNTER 2021-02-10 09:43 | Emergency (ER) | payer MEDICAID ==
[~2021-02-10] VITALS: Ht 162.6 cm; Wt 136.0 kg
[2021-02-10 11:09] LABS: BASOPHILS % (AUTO) 1 % (0-1); EOSINOPHILS % (AUTO) 2 % (1-7); LYMPHOCYTES % (AUTO) 21 % (22-44); MEAN CORPUSCULAR HEMOGLOBIN 27.4 pg (27.0-34.8); MEAN CORPUSCULAR HGB CONC 32.7 g/dL (32.4-35.8); MEAN PLATELET VOLUME 8.8 fL (7.4-10.4); MONOCYTES % (AUTO) 5 % (2-9); NEUTROPHILS % (AUTO) 71 % (42-75); PLATELET COUNT 313 x10^3/uL (130-400); RED BLOOD COUNT 5.14 x10^6/uL (3.82-5.3); RED CELL DISTRIBUTION WIDTH 14.7 % (9.6-15.2)
[2021-02-10 11:20] LABS: ALBUMIN 3.2 g/dL (3.4-5.0); CALCIUM 9.1 mg/dL (8.5-10.1)
[2021-02-10 11:26] LABS: ALANINE AMINOTRANSFERASE 25 U/L (12-78); ALKALINE PHOSPHATASE 85 U/L (45-117); BILIRUBIN,TOTAL 0.4 mg/dL (0.2-1.0); CREATININE 0.79 mg/dL (0.55-1.02); TOTAL PROTEIN 6.9 g/dL (6.4-8.2)
[2021-02-10 11:29] LABS: ANION GAP 6 mmol/L (5-15); CHLORIDE 110 mmol/L (98-107)
--- NOTE | 2021-02-10 11:58 | NUR ---
TRIAGE TECH: PT AMBULATORY TO TRIAGE FOR SECOND SET OF VITALS.
--- NOTE | 2021-02-10 13:50 | NUR ---
PATIENT TO ROOM FROM LOBBY
--- NOTE | 2021-02-10 13:59 | NUR ---
URINE COLLECTED & SENT TO LAB. STATES FINISHED HER ABX 1 WEEK AGO.
[2021-02-10] MEDS ORDERED: KETOROLAC 30 MG/1 ML IM ONE (14:30)
[2021-02-10] MEDS ORDERED: KETOROLAC 60 MG/2 ML ONE (14:48)
[2021-02-10 15:04] VITALS: BP 108/63
[2021-02-10 15:11] LABS: MICROSCOPIC INDICATED
== END 2021-02-10 17:31 ==
LOC: ED 09:51
DX: N30.00 Acute cystitis without hematuria (principal); J45.909 Unspecified asthma, uncomplicated; E66.9 Obesity, unspecified; Z68.43 Body mass index [BMI] 50.0-59.9, adult
CPT/HCPCS: 36415; 80053; 81001; 84703; 85025; 87086; 96372; 99283; J1885